=== PATIENT | female | born 1990 | race Two or more races ===

== ENCOUNTER 2019-10-06 06:52 | Inpatient (IN) | payer OTHER ==
[~2019-10-06] VITALS: Ht 172.7 cm; Wt 2.3 kg
[~2019-10-06 06:52] MED LIST: DOSTINEX0.5 MG
[2019-10-06] MEDS ORDERED: PLAQUENIL PO (08:29)
[2019-10-07] MEDS ORDERED: HYDROXYCHLOROQ200 MG PO (11:42)
== END 2019-10-09 16:30 | disposition home or self-care (01) | DRG 786 ==
LOC: OB/GYN 06:52 → LDR 06:52 → OB/GYN 11:21
PROVIDERS: ADMIT Specialist; ATTEND Specialist
PROC: 4A1HXCZ Monitoring of Products of Conception, Cardiac Rate, External Approach (ICD-10-PCS; 2019-10-06)
PROC: 10D00Z1 Extraction of Products of Conception, Low, Open Approach (ICD-10-PCS; principal; 2019-10-06 10:00)
DX: O64.8XX0 Obstructed labor due to other malposition and malpresentation, not applicable or unspecified (principal); O60.14X0 Preterm labor third trimester with preterm delivery third trimester, not applicable or unspecified; O99.12 Other diseases of the blood and blood-forming organs and certain disorders involving the immune mechanism complicating childbirth; D69.49 Other primary thrombocytopenia; Z3A.36 36 weeks gestation of pregnancy; Z37.0 Single live birth

== ENCOUNTER 2019-10-13 13:19 | Outpatient (CLI) | payer OTHER ==
[~2019-10-13 13:19] MED LIST changes: +HYDROXYCHLOROQ200 MG PO; +PLAQUENIL PO
== END 2019-10-13 13:21 | disposition home or self-care (01) ==
LOC: NUCLEAR 13:19
PROVIDERS: ATTEND Internal Medicine Sports Medicine
DX: I82.612 Acute embolism and thrombosis of superficial veins of left upper extremity (principal); I82.622 Acute embolism and thrombosis of deep veins of left upper extremity

== ENCOUNTER 2019-10-23 08:34 | Emergency (ER) | payer OTHER ==
[~2019-10-23] VITALS: Ht 172.7 cm; Wt 68.0 kg
[2019-10-23] MEDS ORDERED: PLAQUENIL (08:55)
== END 2019-10-23 18:47 | disposition home or self-care (01) ==
LOC: ER 08:34
DX: N93.8 Other specified abnormal uterine and vaginal bleeding (principal); R10.2 Pelvic and perineal pain

== ENCOUNTER 2019-11-16 14:23 | Inpatient (IN) | payer OTHER ==
[~2019-11-16] VITALS: Ht 165.1 cm; Wt 65.8 kg
[~2019-11-16 14:23] MED LIST changes: +PLAQUENIL
[2019-11-17] MEDS ORDERED: HYDROXYCHLOROQ200 MG PO (08:58)
== END 2019-11-24 14:06 | disposition home or self-care (01) | DRG 776 ==
LOC: SURG-SUITE 14:23
PROVIDERS: ADMIT Specialist; ATTEND Specialist
PROC: BW21ZZZ Computerized Tomography (CT Scan) of Abdomen and Pelvis (ICD-10-PCS; principal; 2019-11-16)
PROC: B24BZZZ Ultrasonography of Heart with Aorta (ICD-10-PCS; 2019-11-17)
PROC: B54DZZZ Ultrasonography of Bilateral Lower Extremity Veins (ICD-10-PCS; 2019-11-17)
DX: O86.21 Infection of kidney following delivery (principal); N10 Acute pyelonephritis; R78.81 Bacteremia; M35.00 Sjogren syndrome, unspecified; B96.29 Other Escherichia coli [E. coli] as the cause of diseases classified elsewhere; Z88.0 Allergy status to penicillin; Z20.828 Contact with and (suspected) exposure to other viral communicable diseases; I87.2 Venous insufficiency (chronic) (peripheral)

== ENCOUNTER 2024-02-16 11:40 | Outpatient (CLI) | payer OTHER | END 2024-02-16 11:50 | disposition home or self-care (01) | LOC: RAD 11:40 | PROVIDERS: ATTEND Specialist | DX: S32.2XXA Fracture of coccyx, initial encounter for closed fracture (principal) ==